=== PATIENT | female | born 1995 | race Two or more races ===

== ENCOUNTER 2024-01-22 16:55 | Emergency (ER) | payer OTHER, SELFPAY ==
[2024-01-22 17:40] VITALS: BP 139/92; PULSE 106; RESP 16; TEMP 36.8; O2SAT 98; BMI 19.6
--- NOTE | 2024-01-22 17:51 | ED.GENADULT ---
HPI - General Adult General Chief complaint: Upper Respiratory Symptoms Stated complaint: weakness/head pressure Time Seen by Provider: 01/22/24 19:15 Source: patient Mode of arrival: ambulatory Limitations: no limitations History of Present Illness ED Provider: Mai Lim PA-C HPI narrative: 28 yo female with no known medical history presents to the ER for evaluation of 3 days of generalized weakness, frontal headaches, intermittent nasal congestion and generally not feeling well. Patient denies any fever or chills. She reports some muscle aches in her shoulders initially but this self-resolved. She states her nasal congestion is better now as well. She denies any known sick contacts. She has children at home but they are not sick. She denies any history of seasonal allergies. She denies any nausea, vomiting, diarrhea, abdominal pain. No urinary symptoms. No rashes. MD complaint: URI symptom Onset (ago): day(s) (3) Location: head Radiation: non-radiation Severity: moderate Quality: aching Pain Consistency: intermittent Relieving factors: medication (Tylenol) Exacerbating factors: none Associated symptoms: headaches, loss of appetite and weakness Treatments prior to arrival: none Related Data Previous Rx's ?Medication ?Instructions ?Recorded [id number]-[id number]-lrsigvay 1 tab PO Q6H PRN headache #7 tabs 01/22/24 50 mg-325 mg-40 mg tablet ibuprofen 600 mg tablet 600 mg PO Q8H PRN fever or pain 01/22/24 #20 tabs Allergies Allergy/AdvReac Type Severity Reaction Status Date / Time No Known Allergies Allergy Verified 01/22/24 17:40 Review of Systems Review of Systems: Yes all other systems are reviewed and are negative [facility] Social History Social History Advance Directives: No Advance Directives Information Provided: No Physical Exam ED Vital Signs: Vital Signs - 24 hr 01/22/24 17:40 01/22/24 20:00 Temperature 98.2 F 98.2 F Pulse Rate 106 H 106 H Respiratory Rate 16 16 Blood Pressure 139/92 H 139/92 H Pulse Oximetry 98 98 Oxygen Delivery Method Room Air Room Air BMI result Body Mass Index 19.6 Appearance: Alert. Oriented X3. No acute distress. Head: normocephalic, atraumatic. Eyes: Pupils equal, round and reactive to light. ENT: Pharynx normal. No tonsillar swelling or exudate. Tympanic membranes bilaterally. Sinuses are nontender Neck: Normal inspection. Neck supple. No cervical lymphadenopathy CVS: Normal heart rate and rhythm. Pulses normal. Respiratory: No respiratory distress. Breath sounds normal. Abdomen: Soft and nontender. +BS x4 Skin: Skin warm and dry. Normal skin color. Normal skin turgor. No rashes. Extremities: No lower extremity edema. No joint swelling. Neuro/psych: Oriented X 3. No motor deficit. No sensory deficit. CN II-XII intact. Normal speech and cognition. Course Course Course Narrative: RME: Done by BUHPENDRA Grimes: 28-year-old female presents to ED for URI symptoms. Patient states body aches, chills, sinus pressure. Patient denies any coughing. Patient states subjective fever. Physical exam benign lungs clear. SARs strep ordered. Medications Administered Discontinued Medications Generic Name Dose Route Start Last Admin Trade Name Freq PRN Reason Stop Dose Admin Acetaminophen/Butalbital/Caffeine 1 tab 01/22/24 19:35 01/22/24 19:58 Butalb/Acetamin/Caff 50/325/40 Tablet PO 01/22/24 19:36 1 tab ONCE ONE Administration Ibuprofen 600 mg 01/22/24 19:35 01/22/24 19:58 Ibuprofen 600 Mg Tablet PO 01/22/24 19:36 600 mg ONCE ONE Administration Medical Decision Making Medical Decision Making [facility] Narrative: 28-year-old otherwise healthy female presents to the ER for evaluation of upper respiratory infection symptoms for the last 3 days. Physical exam is benign and unremarkable. She is slightly tachycardic on arrival. She is saturating well on room air and afebrile. She was tested for COVID, flu, RSV and all were negative. Her symptoms most likely due to other viral etiology and antibiotics are not required at this time. She was counseled on this using catering staff member. Will give her prescription for ibuprofen and Fioricet for her headaches which is her primary complaint today. She has no associated neuro symptoms and is neurologically intact. No need for imaging of her head today. She is stable for discharge home with outpatient follow-up. She is in the process of getting a primary care doctor. Differential Diagnosis Differential Diagnoses: The differential diagnosis associated with the presentation includes strep, covid, flu, rsv, other viral syndrome, bronchitis, pneumonia, allergic rhinitis, sinusitis Lab Data [facility] Lab Attestation statement: I reviewed the patient's lab results. Labs: Lab Results 01/22/24 Range/Units 17:58 COVID-19 (GOGO) Negative (Negative) COVID-19 Clin Com See Note Influenza Type A (PCR) NEGATIVE (Negative) Influenza Type B (PCR) NEGATIVE (Negative) RSV RNA Qual (PCR) NEGATIVE (Negative) SARS-CoV-2 RNA (RT-PCR) NEGATIVE (Negative) Independent Historian Clinical information obtained from an independent historian. History obtained from or confirmed by: Spouse Tests considered The following testing was considered but not selected: CT head considered however low clinical suspicion for acute intracranial process Prescription Management I considered prescription management with: Pain Medication and Antibiotic Critical Care Time Critical Care Time Critical Care Time: No Discharge Plan Discharge Clinical Impression: Upper respiratory infection Patient Disposition: Home, Self-Care Instructions: Upper Respiratory Infection (DC) Additional Instructions: You tested negative for COVID, flu, RSV. Your symptoms most likely due to another viral process. Take the prescribed medications as directed. Rest and drink plenty fluids. Follow-up with your doctor. If you develop new or worsening symptoms call 911 or come back to the ER for further evaluation. Prescriptions: New ibuprofen 600 mg tablet 600 mg PO Q8H PRN (Reason: fever or pain) Qty: 20 0RF mkxkoywxbg-lozelyknzmbsb-zoeh 50-325-40 mg tablet 1 tab PO Q6H PRN (Reason: headache) Qty: 7 0RF Interventions: ED Discharge Assessment Last Done: 01/22/24 20:00 Discharge Date/Time: 01/22/24 20:00 Print Language: Lithuanian
[2024-01-22 18:20] LABS: COVID-19 Test Negative (Negative); IDNOW Serial# 58CA691E
[2024-01-22 18:46] LABS: Influenza A PCR NEGATIVE (Negative); Influenza B PCR NEGATIVE (Negative); Resp Syncy Virus RNA Qual PCR NEGATIVE (Negative); SARS COV2 PCR INHOUSE NEGATIVE (Negative)
[2024-01-22] MEDS: Ibuprofen 600 MG TABLET PO (19:58)
[2024-01-22] MEDS: Butalb/Acetamin/Caff 50/325/40 TABLET 1 TAB PO (19:58)
[2024-01-22 20:00] VITALS: BP 139/92; PULSE 106; RESP 16; TEMP 36.8; O2SAT 98
== END 2024-01-22 20:00 | disposition home or self-care (01) ==
PROVIDERS: Physician Assistant; Emergency Provider Internal Medicine
DX: J06.9 Acute upper respiratory infection, unspecified (principal); R51.9 Headache, unspecified; R09.81 Nasal congestion; Z03.818 Encounter for observation for suspected exposure to other biological agents ruled out
CPT/HCPCS: 0241U; 87635; 99283

== ENCOUNTER 2024-11-24 16:18 | Emergency (ER) | payer OTHER, SELFPAY ==
--- NOTE | ~2024-11-24 | XR_ITS ---
CLINICAL HISTORY: neck pain rad down LUE 3 views cervical spine Comparison: None provided Findings: Straightening of the cervical lordosis. No subluxation. No acute fractures or dislocation. No significant degenerative change. Prevertebral soft tissues within normal limits. IMPRESSION: No acute findings. This document has been electronically signed by: Lizzeth Farrar MD on 11/24/2024 17:39:22
[2024-11-24 17:08] VITALS: BP 147/100; PULSE 106; RESP 16; TEMP 36.9; O2SAT 100; BMI 27.3
--- NOTE | 2024-11-24 17:09 | ED.GENADULT ---
HPI - General Adult General Chief complaint: Neuro Symptoms/Deficit Stated complaint: L Arm/ Shoulder Pain Related Data Previous Rx's ?Medication ?Instructions ?Recorded vbkyvvfbpv-vhqjslqehhbbk-jmvdfmwh 1 tab PO Q6H PRN headache #7 tabs 01/22/24 50 mg-325 mg-40 mg tablet ibuprofen 600 mg tablet 600 mg PO Q8H PRN fever or pain 01/22/24 #20 tabs Allergies Allergy/AdvReac Type Severity Reaction Status Date / Time No Known Allergies Allergy Verified 11/24/24 17:12 [facility] Social History Social History Use of substances other than those prescribed or required for medical reasons: No Advance Directives: No Advance Directives Information Provided: No Do you have a plan to hurt others: No Plan Physical Exam ED Vital Signs: Vital Signs - 24 hr 11/24/24 17:08 11/24/24 21:24 Temperature 98.4 F 98.2 F Pulse Rate 106 H 103 H Respiratory Rate 16 18 Blood Pressure 147/100 H 125/87 Pulse Oximetry 100 100 Oxygen Delivery Method Room Air Room Air BMI result Body Mass Index 27.3 Course Course Course Narrative: 11/24/24 1710 BHUPENDRA Hoang This is a Rapid Medical Examination (RME) performed by Colt Garcia PA-C in triage. Full HPI, ROS, assessment and treatment plan per primary provider in the Main ED. Hx: 29 yo F here for eval of pain extending from L neck down her LUE x2 days. assoc numbness. felt a pop when she cracked her neck a few weeks ago. Intermittent headache. PE/vitals: exam nonfocal. sensation intact to b/l UEs. Hypertensive, not currently on medications. History of preeclampsia. Plan: labs, xr c spine - will defer further imaging to primary provider Reevaluation(s) Reevaluation #1: Patient left the emergency department before myself or any of the other clinicians could review or explain physical exam findings, test results, need or lack there of for additional testing, treatment options, or a treatment plan. Medical Decision Making Lab Data 11/24/24 17:43 11/24/24 17:43 Labs: Lab Results 11/24/24 Range/Units 17:43 WBC 9.3 (4.8-10.8) X10*3/uL RBC 4.44 (4.20-5.50) X10*6/uL Hgb 13.2 (12.0-16.0) g/dl Hct 38.7 (37.0-47.0) % MCV 87.2 (80.0-98.0) fL MCH 29.7 (27.0-33.0) pg MCHC 34.1 (31.0-35.0) g/dl RDW 12.8 (11.0-16.0) % Plt Count 313 (160-400) X10*3/uL MPV 10.1 (9.4-12.3) fL Immature Gran % (Auto) 0.2 (0.0-0.4) % Neut % (Auto) 61.5 (45-73) % Lymph % (Auto) 30.9 (20-40) % Kaufman % (Auto) 5.6 (2-11) % Eos % (Auto) 1.2 (0-4) % Baso % (Auto) 0.6 (0-2) % Lymph # (Auto) 2.9 (1.2-4.9) X10*3/uL Kaufman # (Auto) 0.5 (0.1-1.2) X10*3/uL Eos # (Auto) 0.1 (0.0-0.4) X10*3/uL Baso # (Auto) 0.1 (0.0-0.2) X10*3/uL Abs Immat Gran (auto) 0.02 (0.00-0.03) X10*3/uL Absolute Neuts (auto) 5.7 (2.0-8.3) x10*3/uL Absolute Nucleated RBC 0.000 (0.0-0.012) X10*3/uL Nucleated RBC % (auto) 0.0 (0.0-0.2) /100WBC Sodium 138 (135-145) mmol/L Potassium 3.6 (3.3-5.1) mmol/L Chloride 105 (96-108) mmol/L Carbon Dioxide 24 (22-29) mmol/L Anion Gap 13 (12-20) BUN 7 L (9-16) mg/dL Creatinine 0.75 (0.5-1.4) mg/dL Estim Creat Clear Calc 121.6 Estimated GFR > 60 Random Glucose 86 (60-115) mg/dL Calcium 9.4 (8.4-10.2) mg/dL Magnesium 1.9 (1.6-2.6) mg/dL Total Bilirubin 0.4 (0.0-1.0) mg/dL AST 26 (5-31) U/L ALT 24 (0-31) U/L Alkaline Phosphatase 70 (39-117) U/L Total Protein 8.0 (6.5-8.0) g/dL Albumin 4.6 (3.5-5.0) g/dL Beta HCG, Quant < 2 mIU/mL Discharge Plan Discharge Clinical Impression: Neck pain Patient Disposition: Left W/O Completing Treatment Prescriptions: No Action ibuprofen 600 mg tablet 600 mg PO Q8H PRN (Reason: fever or pain) Qty: 20 0RF juzpjccqyo-aeudwyzfyhfex-heyj 50-325-40 mg tablet 1 tab PO Q6H PRN (Reason: headache) Qty: 7 0RF Discharge Date/Time: 11/24/24 23:47
[2024-11-24 17:48] LABS: MANUAL DIFF FLAG NO
[2024-11-24 17:54] LABS: Hematocrit 38.7 % (37.0-47.0); Hemoglobin 13.2 g/dl (12.0-16.0); Imm Gran Abs Auto 0.02 X10*3/uL (0.00-0.03); Imm Gran Pct Auto 0.2 % (0.0-0.4); Lymphocytes Absolute Auto 2.9 X10*3/uL (1.2-4.9); Mean Corpuscular HGB Conc 34.1 g/dl (31.0-35.0); Mean Corpuscular Hemoglobin 29.7 pg (27.0-33.0); Mean Corpuscular Volume 87.2 fL (80.0-98.0); NRBC Abs Auto 0.000 X10*3/uL (0.0-0.012); NRBC Pct Auto 0.0 /100WBC (0.0-0.2); Platelet Count 313 X10*3/uL (160-400); Red Blood Count 4.44 X10*6/uL (4.20-5.50); White Blood Count 9.3 X10*3/uL (4.8-10.8)
[2024-11-24 18:02] LABS: Alanine Aminotransferase 24 U/L (0-31); Albumin Level 4.6 g/dL (3.5-5.0); Alkaline Phosphatase 70 U/L (39-117); Anion Gap 13 (12-20); Aspartate Amino Transferase 26 U/L (5-31); Blood Urea Nitrogen 7 mg/dL (9-16); Calcium 9.4 mg/dL (8.4-10.2); Carbon Dioxide 24 mmol/L (22-29); Chloride 105 mmol/L (96-108); Creatinine Clr Calc Pharmacy 121.6; Estimated Glomerular Filt Rate > 60; Magnesium 1.9 mg/dL (1.6-2.6); Potassium 3.6 mmol/L (3.3-5.1); Sodium 138 mmol/L (135-145); Total Protein 8.0 g/dL (6.5-8.0)
[2024-11-24 21:24] VITALS: BP 125/87; PULSE 103; RESP 18; TEMP 36.8; O2SAT 100
--- NOTE | 2024-11-24 21:27 | MHC.EDTECH ---
Patient place on network systems integrator
--- NOTE | 2024-11-24 21:55 | PC.NURSE ---
assumed care of pt, states L neck pain radiating down to her left arm for a couple days. px increases with head movement. respirations even and unlabored. pain is rated at 4/10.
--- NOTE | 2024-11-24 23:45 | PC.NURSE ---
at this time, pt states she no longer would like to wait for an ed provider, encouraged pt to be seen. charge weigher and provider aware
== END 2024-11-24 23:47 | disposition left against medical advice (07) ==
PROVIDERS: Physician Assistant Medical; Emergency Provider Emergency Medicine
DX: M54.2 Cervicalgia (principal); M79.602 Pain in left arm; R20.0 Anesthesia of skin; R51.9 Headache, unspecified; Z79.899 Other long term (current) drug therapy
CPT/HCPCS: 36415; 72040; 80053; 83735; 84702; 85025; 99283; 99284

== ENCOUNTER → 2024-11-24 17:12 | Outpatient (BNV) | payer OTHER, SELFPAY | PROVIDERS: Visit Provider Specialist | DX: M54.2 Cervicalgia (principal) | CPT/HCPCS: 72040 ==